=== PATIENT | male | born 1965 | race Caucasian/White ===

== ENCOUNTER 2017-07-04 00:08 | Emergency (ER) | payer OTHER ==
[~2017-07-04] VITALS: Ht 180.3 cm; Wt 93.5 kg
[~2017-07-04 00:08] MED LIST: ASPI-699 PO; CYCL-319 PO; HYD25 PO; HYDR-3498 PO; HYDR-762 PO; IBUP-1542 PO; IBUP800T25 PO
[2017-07-04 00:31] VITALS: Ht 180.3 cm; Wt 93.5 kg
--- NOTE | 2017-07-04 03:31 | ERD ---
ER Documentation Chief Complaint Date/Time DATE: 07/04/17 TIME: 03:29 Chief Complaint left foot pain. Stepped on a curb yesterday HPI 51-year-old male presents here in emergency department for complaints of left foot pain after twisting is stepping on a curb yesterday. Patient describes the pain as throbbing 4/10 scale, is worse upon movement, patient denies any numbness or tingling. Patient denies any fever or chills. Patient denies any deformity. Patient did not take any medication to help for pain. Patient takes Percocet but ran out of it. ROS All systems reviewed and are negative except as per history of present illness. Medications Home Meds Active Scripts Hydrocodone Bit-Acetaminophen* ([place]*) 10-325 Mg Tablet, 1 TAB PO Q6 Y for PAIN , #7 TAB Prov:KING RODRIGUEZ PA-C 06/18/16 Ibuprofen* (Motrin*) 800 Mg Tab, 800 MG PO Q6, #30 TAB Prov:KING RODRIGUEZ PA-C 06/18/16 Cyclobenzaprine Hcl* (Cyclobenzaprine Hcl*) 10 Mg Tablet, 10 MG PO TID, #15 TAB Prov:JUAN LADD NP 06/13/16 Hydrocodone Bit-Acetaminophen* ([place]*) 5-325 Mg Tab, 1 TAB PO Q6 Y for PAIN, # 20 TAB Prov:JUAN LADD [employer] 06/13/16 Ibuprofen* (Motrin*) 600 Mg Tab, 600 MG PO Q6H Y for PAIN AND OR ELEVATED TEMP, #30 TAB Prov:JUAN LADD [employer] 06/13/16 Reported Medications Hydrochlorothiazide* (Hydrochlorothiazide*) Unknown Strength Tab, PO DAILY, #30 TAB 06/13/16 Aspirin* ([place]ina Aspirin* Chew) Unknown Strength Tab.chew, PO DAILY, TAB.CHEW 06/13/16 Allergies Allergies: Coded Allergies: No Known Drug Allergies (Verified Allergy, Unknown, 06/12/16) PMhx/Soc History of Surgery: Yes (R LEG SURGERY 1985) Anesthesia Reaction: No Hx Neurological Disorder: No Hx Respiratory Disorders: No Hx Cardiac Disorders: Yes (HTN) Hx Psychiatric Problems: No Hx Miscellaneous Medical Probl: No Hx Alcohol Use: No Hx Substance Use: No Hx Tobacco Use: Yes Smoking Status: Current every day smoker FmHx Family History: No coronary disease, No diabetes, No other Physical Exam Vitals Vital Signs Date Time Temp Pulse Resp B/P Pulse Ox O2 Delivery O2 Flow Rate FiO2 07/04/17 00:31 97.9 103 20 173/90 96 Physical Exam GENERAL: The patient is well developed and appropriate for usual state of health, in no apparent distress. CHEST: Clear to auscultation bilaterally. There are no rales, wheezes or rhonchi. HEART: Regular rate and rhythm. No murmurs, clicks, rubs or gallops. No S3 or S4. ABDOMEN: Soft, nontender and nondistended. Good bowel sounds. No rebound or guarding. No gross peritonitis. No gross organomegaly or masses. No Newton sign or McBurney point tenderness. BACK: No midline or flank tenderness. EXTREMITIES: Tenderness on palpation on the dorsal aspect of the left foot, mild swelling noted, no deformity noted. Equal pulses bilaterally. There is no peripheral clubbing, cyanosis or edema. No focal swelling or erythema. Full range of motion. Grossly neurovascularly intact. NEURO: Alert and oriented. Cranial nerves 2-12 intact. Motor strength in all 4 extremities with 5/5 strength. Sensation grossly intact. Normal speech and gait. SKIN: There is no apparent rash or petechia. The skin is warm and dry. HEMATOLOGIC AND LYMPHATIC: There is no evidence of excessive bruising or lymphedema. No gross cervical, axillary, or inguinal lymphadenopathy. Results 24 hrs PROCEDURE: XR Left Foot. CLINICAL INDICATION: Left foot pain status post injury TECHNIQUE: AP, lateral and oblique views of the left foot was obtained. The images were reviewed on a PACS workstation. COMPARISON: None. FINDINGS: Dorsal forefoot soft tissue swelling. No acute fracture or dislocation is seen. Very small posterior and plantar calcaneal spurs. IMPRESSION: Dorsal forefoot soft tissue swelling. No acute fracture seen. RPTAT: HJES .Bunny Jules MD, Date Time Electronically viewed and signed by .Bunny Jules MD, on 07/04/2017 04:24 .S/ CC: JUAN LADD NP Procedures/MDM Medical Decision Making: Patient's pain is most likely consistent with a foot contusion or a sprain. There is no suspicion for neurovascular compromise. Patient has intact sensation and circulation of the affected extremity. There is low suspicion for septic arthritis. Patient does not have any fever. Radiology exams of the affected area does not show any fracture or dislocation. Disposition: Home. Patient is given prescription for ibuprofen for pain, Percocet for severe pain. Patient was advised to elevate the affected area and apply ice on affected area. Patient was advised that if symptoms are worse, numbness, tingling, high fever, unable to move joint, worsening symptoms, to return to emergency department immediately. Otherwise, patient is advised to follow up with the primary care doctor in 5-7 days for reevaluation of symptoms. Departure Diagnosis: Primary Impression: Foot contusion Encounter type: initial encounter Laterality: left Qualified Code: S90.32XA - Contusion of left foot, initial encounter Condition: Stable Patient Instructions: Contusion, Foot JUAN LADD NP Jul 04, 2017 03:31
--- NOTE | 2017-07-04 04:25 | RADRPT ---
PROCEDURE: XR Left Foot. CLINICAL INDICATION: Left foot pain status post injury TECHNIQUE: AP, lateral and oblique views of the left foot was obtained. The images were reviewed on a PACS workstation. COMPARISON: None. FINDINGS: Dorsal forefoot soft tissue swelling. No acute fracture or dislocation is seen. Very small posterio r and plantar calcaneal spurs. IMPRESSION: Dorsal forefoot soft tissue swelling. No acute fracture seen. RPTAT: HJES .Bunny Jules MD, MD Date Time Electronically viewed and signed by .Bunny Jules MD, MD on 07/04/2017 04:24 .S/
[2017-07-04] MEDS ORDERED: IBUP-1542 PO (04:39)
[2017-07-04] MEDS ORDERED: OXYC-279 PO (04:39)
[2017-07-04 05:08] VITALS: BP 162/106; PULSE 75; RESP 16
== END 2017-07-04 05:10 | disposition home or self-care (01) ==
LOC: FTE 00:08
DX: S90.32XA Contusion of left foot, initial encounter (principal); I10 Essential (primary) hypertension; F17.210 Nicotine dependence, cigarettes, uncomplicated; X50.9XXA Other and unspecified overexertion or strenuous movements or postures, initial encounter; Y92.9 Unspecified place or not applicable; Z79.82 Long term (current) use of aspirin
CPT/HCPCS: 73630; Z7502